=== PATIENT | female | born 1945 | race Caucasian/White ===

== ENCOUNTER 2023-10-19 13:00 | Outpatient (RCR) | payer MEDICARE, BC, SELFPAY | END 2024-02-16 23:59 | disposition home or self-care (01) | PROVIDERS: PCP Family Medicine; Visit Provider Psychiatry & Neurology Neurology | DX: H81.12 Benign paroxysmal vertigo, left ear (principal); R26.9 Unspecified abnormalities of gait and mobility; Z51.89 Encounter for other specified aftercare | CPT/HCPCS: 97110; 97140; 97162 ==